=== PATIENT | female | born 1955 | race African-American/Black ===

== ENCOUNTER 2020-05-09 18:11 | Emergency (ER) | payer MEDICARE, MEDICAID ==
[~2020-05-09] VITALS: Ht 160 cm; Wt 63.5 kg
[2020-05-09 20:30] LABS: Basophils # (auto) 0.1 10 ^3/uL (0-0.2); Basophils % (auto) 0.8 % (0.0-2.0); Eosinophils # (auto) 0.1 10 ^3/uL (0-0.8); Eosinophils % (auto) 0.9 % (0.0-7.0); Hematocrit 43.9 % (36.0-46.0); Hemoglobin 14.4 g/dL (12.2-16.2); Lymphocytes # (auto) 1.9 10 ^3/uL (0.4-5.4); Lymphocytes % (auto) 16.7 % (10.0-50.0); Mean Corpuscular Hemoglobin 29.6 pg (28.0-32.0); Mean Corpuscular Hgb Conc. 32.8 g/dL (32.0-36.0); Mean Corpuscular Volume 90.3 fL (80.0-100.0); Monocytes # (auto) 0.9 10 ^3/uL (0-1.3); Neutrophils # (auto) 8.2 10 ^3/uL (1.6-8.6); Neutrophils % (auto) 73.6 % (37.0-80.0); Red Blood Cells 4.86 10^6/uL (4.0-5.20); Red Cell Distribution Width 13.7 % (11.8-14.3); White Blood Cell 11.1 10^3/uL (4.4-10.8)
[2020-05-09 20:50] LABS: Albumin 3.6 g/dL (3.4-5.0); Calcium 8.9 mg/dL (8.5-10.1); Potassium 4.1 mmol/L (3.5-5.1)
[2020-05-09 20:54] LABS: BUN/Creatinine Ratio 13.1; Bilirubin, Total 0.7 mg/dL (0.2-1.0); Total Protein 7.2 g/dL (6.4-8.2)
[2020-05-09 21:30] LABS: Amphetamine Screen, Urine NEGATIVE (NEGATIVE); Barbiturate Scree,Urine NEGATIVE (NEGATIVE); Benzodiazephine Screen, Urine NEGATIVE (NEGATIVE); Cannabinoid Screen, Urine NEGATIVE (NEGATIVE); Cocaine Screen, Urine NEGATIVE (NEGATIVE); Opiate Scree,Urine NEGATIVE (NEGATIVE); Phencyclidine Screen, Urine NEGATIVE (NEGATIVE)
[2020-05-09 21:33] LABS: Urine Bacteria FEW /hpf (None Seen); Urine Blood 3+ /uL (Negative); Urine Mucus FEW (None Seen); Urine Specific Gravity 1.006 (1.001-1.035); Urine WBC 60 /hpf (0 - 5); Urine WBC Clumps PRESENT /hpf (None Seen)
[2020-05-09] MEDS ORDERED: CIPROFLOXACIN 400MG/200ML 200 ML IV ONE (22:15)
[2020-05-09 22:30] LABS: INR 0.99 (0.9-1.15); Partial Thromboplastin Time 25.4 sec (23.0-31.2)
[2020-05-10 01:36] VITALS: BP 129/74
== END 2020-05-10 01:47 | disposition home or self-care (01) ==
LOC: ER 18:11
DX: N93.8 Other specified abnormal uterine and vaginal bleeding (principal); N39.0 Urinary tract infection, site not specified
CPT/HCPCS: 36415; 76830; 76856; 80053; 80307; 81001; 85025; 85610; 85730; 96365; 99284; J0744; 86850; 86900; 86901

== ENCOUNTER 2020-10-10 20:26 | Inpatient (IN) | payer MEDICARE, MEDICAID ==
[~2020-10-10] VITALS: Ht 152.4 cm; Wt 56.3 kg
[2020-10-11] MEDS ORDERED: SODIUM CHLORIDE 0.9% 1,000 ML IV ONE (09:00)
[2020-10-11] MEDS ORDERED: HYDROmorphone HCL 2 MG/ML VL IV ONE (09:00)
[2020-10-11] MEDS ORDERED: SODIUM CHLORIDE 0.9% 500 ML IVB ONE (09:00)
[2020-10-11] MEDS ORDERED: PROMETHAZINE HCL 25 MG/ML 1ML IV PRN (09:00)
[2020-10-11 10:27] LABS: Urine Bacteria NONE SEEN /hpf (None Seen); Urine Blood 1+ /uL (Negative); Urine Budding Yeast FEW /hpf (None Seen); Urine Specific Gravity 1.013 (1.001-1.035); Urine WBC 26 /hpf (0 - 5); Urine WBC Clumps PRESENT /hpf (None Seen)
[2020-10-11 11:16] LABS: Eosinophils # (auto) 0 10 ^3/uL (0-0.8); Eosinophils % (auto) 0.1 % (0.0-7.0); White Blood Cell 16.6 10^3/uL (4.4-10.8)
[2020-10-11 11:17] LABS: INR 1.11 (0.9-1.15); Partial Thromboplastin Time 33.3 sec (23.0-31.2)
[2020-10-11 11:22] LABS: Basophils # (auto) 0 10 ^3/uL (0-0.2); Basophils % (auto) 0.3 % (0.0-2.0); Hematocrit 25.3 % (36.0-46.0); Hemoglobin 8.1 g/dL (12.2-16.2); Lymphocytes # (auto) 0.3 10 ^3/uL (0.4-5.4); Mean Corpuscular Hemoglobin 24.3 pg (28.0-32.0); Monocytes # (auto) 1.2 10 ^3/uL (0-1.3); Monocytes % (auto) 7.2 % (0.0-12.0); Neutrophils % (auto) 90.4 % (37.0-80.0); Red Blood Cells 3.33 10^6/uL (4.0-5.20); Red Cell Distribution Width 18.4 % (11.8-14.3)
[2020-10-11 11:31] LABS: Potassium 4.9 mmol/L (3.5-5.1)
[2020-10-11 11:40] LABS: Albumin 2.1 g/dL (3.4-5.0); BUN/Creatinine Ratio 24.7; Bilirubin, Total 0.9 mg/dL (0.2-1.0); Magnesium 2.6 mg/dL (1.6-2.6); Total Protein 5.7 g/dL (6.4-8.2)
[2020-10-11] MEDS ORDERED: MORPHINE SULF INJ 2 MG/ML SYRINGE 1ML IV PRN (14:45)
[2020-10-11] MEDS ORDERED: ENOXAPARIN SOD 30 MG/0.3 ML SYRINGE SC ONE (14:45)
[2020-10-11] MEDS ORDERED: NITROGLYCERIN 0.4 MG SL TAB SL PRN (14:45)
[2020-10-11] MEDS ORDERED: PIPERACILLIN-TAZOB 2.25GM 50 ML IV ONE (15:30)
[2020-10-11] MEDS: SODIUM CHLORIDE 0.9% 1,000 ML IV SCH (16:19)
[2020-10-11 18:51] LABS: Hemoglobin 8.2 g/dL (12.2-16.2)
[2020-10-11 18:54] LABS: Hematocrit 25.1 % (36.0-46.0)
[2020-10-11] MEDS: PIPERACILLIN-TAZOB 2.25GM 50 ML IV SCH (21:40)
[2020-10-11] MEDS: PANTOPRAZOLE 40 MG TAB PO SCH (22:15)
[2020-10-12] MEDS: SODIUM CHLORIDE 0.9% 1,000 ML IV SCH ×4 (00:45→20:09)
[2020-10-12] MEDS: PIPERACILLIN-TAZOB 2.25GM 50 ML IV SCH ×4 (02:48→20:09)
[2020-10-12 02:58] LABS: Hemoglobin 7.8 g/dL (12.2-16.2)
[2020-10-12 03:00] LABS: Hematocrit 23.7 % (36.0-46.0)
[2020-10-12] MEDS: MORPHINE SULF INJ 2 MG/ML SYRINGE 1ML IV PRN ×3 (05:57→20:09)
[2020-10-12 06:24] LABS: White Blood Cell 5.4 10^3/uL (4.4-10.8)
[2020-10-12 06:27] LABS: Hematocrit 21.1 % (36.0-46.0); Hemoglobin 7.5 g/dL (12.2-16.2); Mean Corpuscular Hemoglobin 26.6 pg (28.0-32.0); Mean Corpuscular Hgb Conc. 35.5 g/dL (32.0-36.0); Mean Corpuscular Volume 74.9 fL (80.0-100.0); Red Blood Cells 2.82 10^6/uL (4.0-5.20); Red Cell Distribution Width 18.1 % (11.8-14.3)
[2020-10-12 06:37] LABS: Potassium 3.9 mmol/L (3.5-5.1)
[2020-10-12 06:52] LABS: Albumin 1.8 g/dL (3.4-5.0); BUN/Creatinine Ratio 30.2; Basophils % (manual) 0 (0.0-2.0); Bilirubin, Total 0.8 mg/dL (0.2-1.0); Blast Cells 0; Calcium 6.7 mg/dL (8.5-10.1); Eosinophils % (manual) 0 (0-7); Promyelocytes % 0; Reactive Lymphocytes 0; Total Protein 5.3 g/dL (6.4-8.2)
[2020-10-12 09:01] LABS: Band Neutrophils % (manual) 18; Lymphocytes % (manual) 2 (10.0-50.0); Metamyelocytes % 12; Monocytes % (manual) 2 (0-12); Myelocytes % 3
[2020-10-12] MEDS: PANTOPRAZOLE 40 MG TAB PO SCH ×2 (09:57→20:09)
[2020-10-12] MEDS ORDERED: ENOXAPARIN SOD 30 MG/0.3 ML SYRINGE SC SCH (10:00)
[2020-10-12 11:55] LABS: Hematocrit 22.2 % (36.0-46.0); Hemoglobin 7.3 g/dL (12.2-16.2)
[2020-10-12 13:00] VITALS: BP 116/71
[2020-10-12 13:37] VITALS: BP 116/71
[2020-10-12 17:00] VITALS: BP 114/63
[2020-10-12 18:43] LABS: Hematocrit 18.9 % (36.0-46.0)
[2020-10-12 18:50] LABS: Hemoglobin 6.5 g/dL (12.2-16.2)
[2020-10-12 22:00] VITALS: BP 93/55
[2020-10-12 23:15] VITALS: BP 88/53
[2020-10-12 23:39] VITALS: BP 79/51
[2020-10-13] VITALS (10 sets, daily range): BP systolic 86–124; BP diastolic 52–70
[2020-10-13] MEDS ORDERED: SODIUM CHLORIDE 0.9% 500 ML IV ONE (00:15)
[2020-10-13] MEDS: ALBUMIN 25% 100 ML IV SCH ×3 (00:49→18:51)
[2020-10-13] MEDS: PIPERACILLIN-TAZOB 2.25GM 50 ML IV SCH ×4 (03:07→22:00)
[2020-10-13] MEDS: SODIUM CHLORIDE 0.9% 1,000 ML IV SCH ×3 (03:40→22:00)
[2020-10-13 08:03] LABS: Mean Corpuscular Hemoglobin 25.4 pg (28.0-32.0); Mean Corpuscular Volume 76.5 fL (80.0-100.0); White Blood Cell 3.4 10^3/uL (4.4-10.8)
[2020-10-13 08:04] LABS: Hematocrit 21.2 % (36.0-46.0); Mean Corpuscular Hgb Conc. 33.2 g/dL (32.0-36.0); Red Blood Cells 2.77 10^6/uL (4.0-5.20); Red Cell Distribution Width 18.2 % (11.8-14.3)
[2020-10-13 08:08] LABS: Basophils % (manual) 0 (0.0-2.0); Blast Cells 0; Eosinophils % (manual) 0 (0-7); Promyelocytes % 0; Reactive Lymphocytes 0
[2020-10-13 08:21] LABS: BUN/Creatinine Ratio 27.4; Calcium 6.3 mg/dL (8.5-10.1); Potassium 3.4 mmol/L (3.5-5.1)
[2020-10-13 08:24] LABS: Total Protein 5.3 g/dL (6.4-8.2)
[2020-10-13 08:39] LABS: Band Neutrophils % (manual) 18; Lymphocytes % (manual) 17 (10.0-50.0); Metamyelocytes % 9; Monocytes % (manual) 1 (0-12); Myelocytes % 3
[2020-10-13] MEDS: PANTOPRAZOLE 40 MG TAB PO SCH (09:29)
[2020-10-13] MEDS: PROMETHAZINE HCL 25 MG/ML 1ML IV PRN ×2 (09:31→22:06)
[2020-10-13] MEDS: MORPHINE SULF INJ 2 MG/ML SYRINGE 1ML IV PRN (09:32)
[2020-10-13] MEDS ORDERED: HYDROcodone-ACET 10/325MG TAB PO PRN (13:15)
[2020-10-13] MEDS ORDERED: SENNA 8.6 MG TAB PO SCH (22:00)
[2020-10-13] MEDS: MORPHINE SULF 30 mg ER tab PO SCH (22:05)
[2020-10-14] VITALS (15 sets, daily range): BP systolic 44–156; BP diastolic 22–72
[2020-10-14] MEDS: PIPERACILLIN-TAZOB 2.25GM 50 ML IV SCH ×4 (03:08→20:01)
[2020-10-14 05:39] LABS: Potassium 4.2 mmol/L (3.5-5.1)
[2020-10-14 05:49] LABS: BUN/Creatinine Ratio 25.1; Calcium 6.5 mg/dL (8.5-10.1)
[2020-10-14] MEDS: SODIUM CHLORIDE 0.9% 1,000 ML IV SCH ×2 (06:00→15:22)
[2020-10-14] MEDS: MORPHINE SULF 30 mg ER tab PO SCH (08:49)
[2020-10-14] MEDS ORDERED: PANTOPRAZOLE 40 MG/10 ML VIAL INJ IV SCH (10:00)
[2020-10-14 12:11] LABS: Basophils # (auto) 0 10 ^3/uL (0-0.2); Eosinophils # (auto) 0 10 ^3/uL (0-0.8); Hemoglobin 11.3 g/dL (12.2-16.2); Lymphocytes # (auto) 0.2 10 ^3/uL (0.4-5.4); Monocytes # (auto) 0.1 10 ^3/uL (0-1.3); Neutrophils # (auto) 0.3 10 ^3/uL (1.6-8.6)
[2020-10-14 12:14] LABS: Lymphocytes % (auto) 37.1 % (10.0-50.0); Mean Corpuscular Hemoglobin 26.3 pg (28.0-32.0); Mean Corpuscular Hgb Conc. 33.4 g/dL (32.0-36.0); Mean Corpuscular Volume 78.7 fL (80.0-100.0); Monocytes % (auto) 16.1 % (0.0-12.0); Neutrophils % (auto) 46.8 % (37.0-80.0); Nucleated Red Blood Cells % 1.2 %; Red Blood Cells 4.32 10^6/uL (4.0-5.20)
[2020-10-14 12:35] LABS: White Blood Cell 0.6 10^3/uL (4.4-10.8)
[2020-10-14] MEDS ORDERED: CLINIMIX PER PHARMACY 0 ML IV SCH (14:45)
[2020-10-14] MEDS ORDERED: FILGRASTIM(TBO) 480 MCG/0.8 ML SYRG SC ONE (14:45)
[2020-10-14] MEDS ORDERED: NOREPINEPHRINE 8 MG/250ML KIT 250 ML IV ONE ×2 (16:43→16:45)
[2020-10-14] MEDS ORDERED: fentaNYL Drip 2500mCg/250mlNS 250 ML IV SCH (16:45)
[2020-10-14] MEDS ORDERED: SODIUM BICARBONATE 50ML VIAL 150 ML in D5W 5% 1,000 ML IV SCH (16:45)
[2020-10-14] MEDS ORDERED: NOREPINEPHRINE 8 MG/250ML KIT 250 ML IV SCH (16:45)
[2020-10-14] MEDS ORDERED: MIDAZOLAM DRIP 50 mg/50mL 50 ML IV SCH (16:45)
[2020-10-14] MEDS ORDERED: PHENYLEPHRINE IV 250 ML IV ONE (18:01)
[2020-10-14] MEDS ORDERED: PHENYLEPHRINE IV 250 ML IV SCH (18:30)
[2020-10-14] MEDS: ACCU-CHEK COMFORT CURVE STRIP VI SCH ×2 (19:23→20:01)
[2020-10-14] MEDS ORDERED: SODIUM BICARBONATE 8.4 % INJ 50ML VIAL IV ONE (19:30)
[2020-10-14 19:31] LABS: Hematocrit 30.9 % (36.0-46.0); Hemoglobin 10.3 g/dL (12.2-16.2); Mean Corpuscular Hemoglobin 26.7 pg (28.0-32.0); Mean Corpuscular Hgb Conc. 33.2 g/dL (32.0-36.0); Mean Corpuscular Volume 80.4 fL (80.0-100.0); Red Blood Cells 3.85 10^6/uL (4.0-5.20); Red Cell Distribution Width 18.6 % (11.8-14.3)
[2020-10-14 19:46] LABS: Albumin 1.7 g/dL (3.4-5.0); BUN/Creatinine Ratio 21.4; Basophils % (manual) 0 (0.0-2.0); Blast Cells 0; Calcium 6.4 mg/dL (8.5-10.1); Eosinophils % (manual) 0 (0-7); Promyelocytes % 0; Reactive Lymphocytes 0
[2020-10-14 19:47] LABS: White Blood Cell 0.5 10^3/uL (4.4-10.8)
[2020-10-14 19:49] LABS: Bilirubin, Total 2.2 mg/dL (0.2-1.0); Total Protein 4.8 g/dL (6.4-8.2)
[2020-10-14] MEDS ORDERED: AMINO ACID INFUSION IN D10W 1,000 ML IV NR (20:00)
[2020-10-14 20:30] LABS: Band Neutrophils % (manual) 1; Lymphocytes % (manual) 75 (10.0-50.0); Metamyelocytes % 1; Monocytes % (manual) 3 (0-12); Myelocytes % 2
[2020-10-14] MEDS ORDERED: EPINEPHrine HCL 1 MG/10 ML SYRG IV ONE (21:54)
[2020-10-14] MEDS ORDERED: DEXTROSE (50%) 50ML SYRG IV ONE (21:54)
[2020-10-14] MEDS ORDERED: SODIUM BICARBONATE 8.4% INJ 50ML SYRINGE IV ONE (21:54)
[2020-10-14] MEDS ORDERED: MORPHINE SULF 30 mg ER tab PO SCH (22:00)
[2020-10-15] MEDS ORDERED: ACCU-CHEK COMFORT CURVE STRIP VI SCH
[2020-10-15] MEDS ORDERED: InsuLIN REG 1unit/0.01ml Soln (100units/ml) SC SCH
[2020-10-15] MEDS ORDERED: DEXTROSE (50%) 50ML SYRG IV SCH
[2020-10-15] MEDS ORDERED: FILGRASTIM(TBO) 480 MCG/0.8 ML SYRG SC SCH (10:00)
== END 2020-10-14 23:43 | DRG 754 ==
LOC: ER 20:26 → EDBD 20:26 → TELE 10-11 14:44 → TELE-CENTR 10-12 12:18 → DOU IN ICU 10-14 17:40
PROVIDERS: ADMIT Internal Medicine; ATTEND Internal Medicine
PROC: 30230N1 Transfusion of Nonautologous Red Blood Cells into Peripheral Vein, Open Approach (ICD-10-PCS; 2020-10-12)
PROC: 0BH17EZ Insertion of Endotracheal Airway into Trachea, Via Natural or Artificial Opening (ICD-10-PCS; principal; 2020-10-14)
PROC: 5A1935Z Respiratory Ventilation, Less than 24 Consecutive Hours (ICD-10-PCS; 2020-10-14)
PROC: 5A12012 Performance of Cardiac Output, Single, Manual (ICD-10-PCS; 2020-10-14)
DX: C55 Malignant neoplasm of uterus, part unspecified (principal); N17.0 Acute kidney failure with tubular necrosis; J96.01 Acute respiratory failure with hypoxia; C78.00 Secondary malignant neoplasm of unspecified lung; N18.4 Chronic kidney disease, stage 4 (severe); K56.7 Ileus, unspecified; N13.6 Pyonephrosis; R65.10 Systemic inflammatory response syndrome (SIRS) of non-infectious origin without acute organ dysfunction; E44.0 Moderate protein-calorie malnutrition; I95.9 Hypotension, unspecified; M54.5 Low back pain; Z20.822 Contact with and (suspected) exposure to COVID-19; W19.XXXA Unspecified fall, initial encounter; E86.0 Dehydration; Z66 Do not resuscitate; D50.0 Iron deficiency anemia secondary to blood loss (chronic); I46.9 Cardiac arrest, cause unspecified; Y92.009 Unspecified place in unspecified non-institutional (private) residence as the place of occurrence of the external cause; Z90.710 Acquired absence of both cervix and uterus
CPT/HCPCS: 36415; 36600; 51702; 71045; 72100; 74176; 76775; 80048; 80053; 81001; 82150; 82805; 82962; 83690; 83735; 84100; 84443; 84550; 85007; 85014; 85018; 85025; 85027; 85045; 85610; 85730; 86850; 86900; 86901; 86920; 87040; 87070; 87081; 87086; 87205; 87426; 93005; 94002; 96361; 96365; 96366; 96372; 96375; A4618; C9113; G0378; J1447; J2250; J2543; P9047